=== PATIENT | female | born 1965 | race Caucasian/White ===

== ENCOUNTER → 2017-10-17 | Outpatient (CLI) | payer BC | LOC: BMCIMAGING 10:56 → EDSTATUS 10:57 | PROVIDERS: ATTEND Internal Medicine Rheumatology | DX: M21.062 Valgus deformity, not elsewhere classified, left knee (principal); M21.061 Valgus deformity, not elsewhere classified, right knee; M19.041 Primary osteoarthritis, right hand; M19.042 Primary osteoarthritis, left hand ==